=== PATIENT | female | born 1990 | race African-American/Black ===

== ENCOUNTER 2019-02-10 09:28 | Outpatient (CLI) | payer OTHER | END 2019-02-10 09:29 | disposition home or self-care (01) | LOC: EKG 09:28 | PROVIDERS: ATTEND Obstetrics & Gynecology | DX: R42 Dizziness and giddiness (principal) | CPT/HCPCS: 93005; 93010 ==

== ENCOUNTER 2019-02-23 11:12 | Emergency (ER) | payer OTHER ==
--- NOTE | 2019-02-23 11:59 | RAD ---
EXAM: Portable chest PROVIDED CLINICAL HISTORY: Cough COMPARISON: None FINDINGS: Cardiac and mediastinal silhouette is within normal limits. No focal consolidation, pleural fluid or pneumothorax evident. IMPRESSION: No evidence for an acute cardiopulmonary process.
[2019-02-23 12:18] LABS: ALT (SGPT) 24 U/L (8-55); AST (SGOT) 26 U/L (5-34); Albumin 3.9 g/dL (3.5-5.0); Alkaline Phosphatase 68 U/L (40-150); Anion Gap 15 mmol/L (10-20); BUN (Urea Nitrogen) 7 mg/dL (7.0-18.7); Bilirubin, Total 0.3 mg/dL (0.2-1.2); Calc. Creatinine Clearance 0 mL/min (70-130); Calcium 9.1 mg/dL (7.8-10.44); Carbon Dioxide 21 mmol/L (22-29); Chloride 104 mmol/L (98-107); Estimated GFR-MDRD Greater than 90; Globulin 3.5 g/dL (2.4-3.5); Glucose 75 mg/dL (70-105); Protein, Total 7.4 g/dL (6.0-8.3); Sodium 136 mmol/L (136-145)
[2019-02-23 12:20] LABS: #Basophils 0.1 thou/uL (0.0-0.2); #Eosinphils 0.1 thou/uL (0.0-0.7); #Lymphocytes 1.8 thou/uL (1.20-3.40); #Monocytes 0.8 thou/uL (0.11-0.59); #Neutrophils 7.3 thou/uL (1.40-6.50); %Basophils 0.5 % (0.0-1.0); %Eosinophils 1.1 % (0.0-10.0); %Lymphocytes 17.6 % (21.0-51.0); %Monocytes 7.8 % (0.0-10.0); Mean Corpuscular HGB CONC 32.9 g/dL (32.0-36.0); Mean Corpuscular Hemoglobin 29.4 pg (27.0-31.0); Mean Corpuscular Volume 89.5 fL (78.0-98.0); Mean Platelet Volume 8.2 fL (7.4-10.4); Platelet Count 285 thou/uL (130-400); RBC Distribution Width 13.5 % (11.5-14.5); Red Blood Cell (RBC) Count 4.41 mill/uL (4.20-5.40); White Blood Cell (WBC) Count 9.9 thou/uL (4.8-10.8)
[2019-02-23 12:55] LABS: Bilirubin Negative (Negative); Blood, Urine Small (Negative); Clarity CLOUDY (Clear); Glucose, Urine (Dipstick) Negative (Negative); Leukocyte Small (Negative); Nitrite Negative (Negative); Protein, Urine (Dipstick) 30 mg/dL (Neg-Trace); Specific Gravity, Urine 1.022 (1.002-1.036); Urobilinogen 0.2 mg/dL (0.2-1.0)
[2019-02-23 12:57] LABS: Bacteria/HPF Rare-Few HPF (None Seen); Pathc Cast-AUWi Flag 2.44 (0-2.49); Squamous Epithelial 21-50 HPF (0-3)
[2019-02-23 13:06] LABS: Hyaline Casts/LPF 0-3 HYALINE CAST LPF (0-3 Hyaline)
[2019-02-23] MEDS ORDERED: Fentanyl 100 MCG/2 ML VIAL ONE (13:49)
[2019-02-23] MEDS ORDERED: Acetaminophen 500 MG TAB ONE (13:49)
--- NOTE | 2019-02-26 09:05 | EKG ---
Test Reason : Blood Pressure : / mmHG Vent. Rate : 110 BPM Atrial Rate : 110 BPM P-R Int : 156 ms QRS Dur : 086 ms QT Int : 334 ms P-R-T Axes : 042 093 001 degrees QTc Int : 452 ms Sinus tachycardia Rightward axis Borderline ECG Confirmed by CLEM ANDERSON D.O. ([id number]), department editor CLARE NIX ([id number] on 02/26/2019 9:05:19 AM Referred By: Confirmed By:CLEM ANDERSON D.O.
== END 2019-02-23 14:30 | disposition home or self-care (01) ==
LOC: ERS 11:12
DX: O99.512 Diseases of the respiratory system complicating pregnancy, second trimester (principal); J06.9 Acute upper respiratory infection, unspecified; O23.42 Unspecified infection of urinary tract in pregnancy, second trimester; Z3A.22 22 weeks gestation of pregnancy
CPT/HCPCS: 36415; 71045; 80053; 81003; 81015; 83605; 85025; 87040; 87804; 93005; 94760; 96374; J3010

== ENCOUNTER 2019-06-19 19:15 | Inpatient (IN) | payer OTHER ==
--- NOTE | 2019-06-19 14:27 | PDOC.LDHP ---
Labor and Delivery H&P Chief complaint: scheduled induction HPI: 28 yo @ 38w2d who presents for IOL due to CHTN, not on meds. Current gestational age (weeks): 38 Due date: 07/01/19 Dating criteria: first trimester ultrasound Grav: 3 Para: 1 Current complications: hypertension Abnormal US findings: No Past Medical History: CHTN Current medications: pre-inessa vitamins, other (ASA 81 mg QD) Allergies/Adverse Reactions: Allergies Allergy/AdvReac Type Severity Reaction Status Date / Time acetaminophen [From Vicodin] Allergy Mild Emesis Verified 06/19/19 19:36 hydrocodone [From Vicodin] Allergy Mild Emesis Verified 06/19/19 19:36 Social history: none - Physical Exam Vital signs reviewed and normal: yes General: NAD Heart: RRR Lungs: nonlabored breathing Abdomen: gravid Extremeties: no edema FHT: category 1 (130s, mod sadiq, +accels, no decels) [place] contractions every: q2-5 min, not feeling them - Vaginal Exam cm dilated: 1 (cephalic, Cook balloon placed 80/80 cc) Effacement: 0% Station: -3 - OB Labs Blood type: O RH: positive Antibody Screen: negative HIV: negative RPR: negative HEPSAg: negative 1 hour GCT: negative GBS: negative Urine drug screen: negative Rubella: immune Additional Labs: SS wnl - Assessment 28 yo @ 38w2d IOL due to CHTN - Plan Plan: admit to L&D, cervical ripening (s/p cytotec and balloon placed), informed consent obtained, anesthesia consult for pain management
[2019-06-19] MEDS ORDERED: Misoprostol 200 MCG TAB PR PRN (19:32)
[2019-06-19] MEDS ORDERED: NS / Oxytocin 40 units/1000ml 1,000 ML IV PRN (19:32)
[2019-06-19] MEDS ORDERED: Carboprost 250 MCG/ML AMP IM PRN (19:32)
[2019-06-19] MEDS ORDERED: Ondansetron PF 4 MG/2 ML Vial IVP PRN (19:32)
[2019-06-19] MEDS ORDERED: hydrALAZINE 20 MG/ML VIAL SLOW IVP PRN (19:32)
[2019-06-19] MEDS ORDERED: Diphenoxylate HCl/Atropine Tablet PO PRN (19:32)
[2019-06-19] MEDS ORDERED: Butorphanol Tartrate 1 MG/ML VIAL SLOW IVP PRN (19:32)
[2019-06-19] MEDS ORDERED: Promethazine HCl 25 MG/ML VIAL IM PRN (19:32)
[2019-06-19] MEDS ORDERED: HYDROcodone/Acetaminophen 5/325 mg Tablet PO PRN (19:32)
[2019-06-19] MEDS ORDERED: Ibuprofen 800 MG TAB PO PRN (19:32)
[2019-06-19] MEDS ORDERED: Lidocaine 1% (PF) 30 ML VIAL SC PRN (19:32)
[2019-06-19] MEDS ORDERED: Acetaminophen 500 MG TAB PO PRN (19:32)
[2019-06-19 19:44] VITALS: BMI 41.5
[2019-06-19] MEDS: Lactated Ringer's 1,000 ML IV SCH (20:00)
[2019-06-19] MEDS ORDERED: Misoprostol 100 MCG TAB ONE (20:07)
[2019-06-19 20:10] LABS: Hemoglobin 11.9 g/dL (12.0-16.0); Mean Corpuscular HGB CONC 34.1 g/dL (32.0-36.0); Mean Corpuscular Hemoglobin 30.9 pg (27.0-31.0); Mean Corpuscular Volume 90.8 fL (78.0-98.0); Mean Platelet Volume 8.5 fL (7.4-10.4); Platelet Count 234 thou/uL (130-400); RBC Distribution Width 13.7 % (11.5-14.5); Red Blood Cell (RBC) Count 3.85 mill/uL (4.20-5.40); White Blood Cell (WBC) Count 7.3 thou/uL (4.8-10.8)
[2019-06-19] MEDS: Misoprostol 100 MCG TAB VAG SCH ×2 (20:19→23:30)
[2019-06-19 20:37] LABS: ALT (SGPT) 9 U/L (8-55); AST (SGOT) 15 U/L (5-34); Albumin 3.6 g/dL (3.5-5.0); Alkaline Phosphatase 133 U/L (40-150); Anion Gap 12 mmol/L (10-20); BUN (Urea Nitrogen) 6 mg/dL (7.0-18.7); Bilirubin, Total 0.3 mg/dL (0.2-1.2); Calc. Creatinine Clearance 219 mL/min (70-130); Calcium 9.4 mg/dL (7.8-10.44); Carbon Dioxide 22 mmol/L (22-29); Chloride 107 mmol/L (98-107); Estimated GFR-MDRD Greater than 90; Globulin 3.1 g/dL (2.4-3.5); Glucose 85 mg/dL (70-105); Potassium 3.8 mmol/L (3.5-5.1); Protein, Total 6.7 g/dL (6.0-8.3); Sodium 137 mmol/L (136-145)
[2019-06-19 20:53] LABS: Syphilis Antibody Nonreactive (Nonreactive); Syphilis Antibody Index 0.07 S/CO (<1.00 Non-Reactive)
[2019-06-19 20:59] LABS: Bilirubin Negative (Negative); Blood, Urine Negative (Negative); Clarity Clear (Clear); Glucose, Urine (Dipstick) Normal (Negative); Leukocyte Negative Leu/uL (Negative); Nitrite Negative (Negative); Protein, Urine (Dipstick) 10 mg/dL (Neg-Trace); Urobilinogen Normal mg/dL (Less than 2); WBC/HPF 0-3 HPF (0-3)
[2019-06-19 21:07] LABS: Bacteria/HPF Rare-Few HPF (None Seen); Yeast-Budding None Seen HPF (None Seen)
[2019-06-20 00:24] LABS: HBSAg Index 0.26 S/CO (0-0.99); HIV (1/2) Antibody/Antigen Non-Reactive (NonReactive); HIV 1/2 INDEX 0.07 S/CO (<1.00); Hep B Surf Ag Non-Reactive S/CO (NonReactive)
[2019-06-20] MEDS: Misoprostol 100 MCG TAB VAG SCH ×2 (02:46→22:13)
[2019-06-20] MEDS: Lactated Ringer's 1,000 ML IV SCH ×2 (03:12→22:11)
--- NOTE | 2019-06-20 12:37 | PDOC.LDPN ---
Labor & Delivery Progress Note - Subjective Subjective: painful contractions - Objective Vital signs reviewed and normal: yes General: NAD Uterine fundus: non tender Dilation: 5 Effacement: 50% Station: -2 FHT: category 1 (140s, mod sadiq, +accels, no decels ) [place] contractions every: q2-4 min Procedures: Cook balloon removed. AROM: clear fluid Plan: continue plan of care, pitocin for augmentation
--- NOTE | 2019-06-20 16:45 | PDOC.LDPN ---
Labor & Delivery Progress Note - Subjective Subjective: painful contractions - Objective Vital signs reviewed and normal: yes General: NAD Uterine fundus: non tender Dilation: 6 Effacement: 75% Station: -1 FHT: category 2 (140s, mod sadiq, +accels, variable decels with ctx ) IUPC placed: yes Resuscitative measures: amniofusion, maternal position change - Assessment (1) 38 weeks gestation of Code(s): Z3A.38 - 38 WEEKS GESTATION OF Current Visit: Yes Status : Acute (2) Chronic hypertension Code(s): I10 - ESSENTIAL (PRIMARY) HYPERTENSION Current Visit: Yes Status: Acute Plan: continue plan of care, pitocin for augmentation, resuscitative measures ( start amnioinfusion )
[2019-06-20] MEDS ORDERED: Lidocaine 1.5%/Epinephrine 1:200,000 5 ML AMPUL IJ ONE (17:23)
[2019-06-20] MEDS ORDERED: Fentanyl 4 mcg/Bup 0.1% Cadd 100 ML ONE (17:23)
[2019-06-20] MEDS ORDERED: Ibuprofen 800 MG TAB PO PRN (19:41)
[2019-06-20] MEDS ORDERED: Milk Of Magnesia 30 ML UDCUP PO PRN (19:54)
[2019-06-20] MEDS ORDERED: Bisacodyl 10 MG SUPP PR PRN (19:54)
[2019-06-20] MEDS ORDERED: hydrALAZINE 20 MG/ML VIAL SLOW IVP PRN (19:54)
[2019-06-20] MEDS ORDERED: diphenhydrAMINE 25 MG CAP PO PRN (19:54)
[2019-06-20] MEDS ORDERED: HYDROcodone/Acetaminophen 5/325 mg Tablet PO PRN (19:54)
[2019-06-20] MEDS ORDERED: NS / Oxytocin 40 units/1000ml 1,000 ML IV SCH (19:54)
[2019-06-20] MEDS ORDERED: Benzocaine-Menthol 82.5 ML CAN TOP PRN (19:54)
[2019-06-20] MEDS: NS w/ Oxytocin 10 units 500 ML IV SCH (22:12)
[2019-06-21] MEDS: Docusate Calcium (SURFAK) 240 MG CAP PO SCH ×3 (01:07→21:29)
--- NOTE | 2019-06-21 01:25 | OP ---
DATE OF PROCEDURE: 06/20/2019 The patient delivered a male infant on 06/20/2019 at 1800 hours by term spontaneous vaginal delivery at 38 weeks gestation. Apgars were 8 and 9. Placenta delivered spontaneously followed by Pitocin infusion. There were no lacerations. Estimated blood loss was [address] Uziel Mooney is a delivering physician. Counts are correct. Mother and baby are stable in the room in the immediate . Job ID: [id number]
[2019-06-21] MEDS: NS w/ Oxytocin 10 units 500 ML IV SCH (06:12)
[2019-06-21] MEDS: Ibuprofen 800 MG TAB PO SCH ×3 (06:16→21:29)
[2019-06-21 06:18] LABS: #Eosinphils 0.1 thou/uL (0.0-0.7); #Monocytes 1.4 thou/uL (0.11-0.59); #Neutrophils 10.4 thou/uL (1.40-6.50); %Basophils 0.2 % (0.0-1.0); %Eosinophils 0.7 % (0.0-10.0); %Lymphocytes 14.4 % (21.0-51.0); %Monocytes 9.8 % (0.0-10.0); Mean Corpuscular HGB CONC 34.1 g/dL (32.0-36.0); Mean Corpuscular Hemoglobin 31.5 pg (27.0-31.0); Mean Corpuscular Volume 92.1 fL (78.0-98.0); Mean Platelet Volume 8.6 fL (7.4-10.4); Platelet Count 206 thou/uL (130-400); RBC Distribution Width 13.8 % (11.5-14.5); Red Blood Cell (RBC) Count 3.81 mill/uL (4.20-5.40); White Blood Cell (WBC) Count 13.8 thou/uL (4.8-10.8)
[2019-06-21] MEDS: Ferrous Sulfate 325 MG TAB PO SCH ×2 (08:55→21:08)
--- NOTE | 2019-06-21 10:07 | PDOC.PP ---
Post Progress Note Post Day #: 1 Subjective: Pt doing well PPD1. Minimal locia. She denies any pain at this time. She is urinating without difficulty. She is breast feeding and baby has been latching well. She is eating and drinking normally. She has no leg pain or swelling. PO intake tolerated: yes Flatus: yes Ambulation: yes Vital Signs (12 hours) Temp Pulse Resp BP Pulse Ox 06/21/19 07:49 98.6 F 95 20 116/56 L 98 06/21/19 06:34 98.6 F 94 16 124/60 06/21/19 00:05 98.3 F 101 H 12 129/58 L 06/20/19 22:30 99.5 F 117 H 16 125/57 L Weight Weight 242 lb - Physical Examination General: NAD Respiratory: non-labored breathing Abdominal: + bowel sounds Fundus firm & at: 1 cm below umbilicus Extremities: negative homans (B) Skin: no rash Neurological: no gross focal deficits Psychiatric: A&Ox3, normal affect Result Diagrams: 06/21/19 05:51 06/19/19 20:01 Additional Labs: Post Labs Blood Type O POSITIVE 06/19/19 20:25 Hep Bs Antigen Non-Reactive S/CO (NonReactive) 06/19/19 20:01 Rh +, GBS - (1) Vaginal delivery Code(s): O80 - ENCOUNTER FOR FULL-TERM UNCOMPLICATED DELIVERY Status: Acute (2) Chronic hypertension Code(s): I10 - ESSENTIAL (PRIMARY) HYPERTENSION Status: Acute - Assessment/Plan Pt is doing well PPD1. She is has minimal lochia and denies pain. She is breast feeding and baby is latching well. She remains normotensive this am. Baby boy is getting circumcised later today and will be discharged tomorrow. We will plan to d/c mom tomorrow on PPD2 with baby.
[2019-06-22] MEDS: Ibuprofen 800 MG TAB PO SCH (05:45)
[2019-06-22] MEDS: NS w/ Oxytocin 10 units 500 ML IV SCH (06:06)
[2019-06-22 07:54] VITALS: BP 114/59; TEMP 98.1
[2019-06-22] MEDS: Docusate Calcium (SURFAK) 240 MG CAP PO SCH (09:14)
[2019-06-22] MEDS: Ferrous Sulfate 325 MG TAB PO SCH (09:16)
--- NOTE | 2019-06-22 13:23 | PDOC.PP ---
Post Progress Note Post Day #: 2 Subjective: Late entry PP note: Doing well, no concerns. Minimal pain and lochia. Breast feeding. PO intake tolerated: yes Flatus: yes Ambulation: yes Vital Signs (12 hours) Temp Pulse Resp BP Pulse Ox 06/22/19 07:53 98.1 F 78 20 114/59 L 98 Weight Weight 242 lb - Physical Examination General: NAD Cardiovascular: RRR Respiratory: non-labored breathing Abdominal: no distention, appropriately TTP Fundus firm & at: below umbilicus Extremities: negative homans (B) Neurological: no gross focal deficits Psychiatric: A&Ox3, normal affect Result Diagrams: 06/21/19 05:51 06/19/19 20:01 Additional Labs: Post Labs Blood Type O POSITIVE 06/19/19 20:25 Hep Bs Antigen Non-Reactive S/CO (NonReactive) 06/19/19 20:01 (1) 38 weeks gestation of Code(s): Z3A.38 - 38 WEEKS GESTATION OF Status: Resolved (2) Chronic hypertension Code(s): I10 - ESSENTIAL (PRIMARY) HYPERTENSION Status: Resolved (3) Vaginal delivery Code(s): O80 - ENCOUNTER FOR FULL-TERM UNCOMPLICATED DELIVERY Status: Acute - Assessment/Plan PPD2 VSSAF BPs wnl D/C home today with infant
== END 2019-06-22 12:45 | disposition home or self-care (01) | DRG 807 ==
LOC: L&D 19:19 → 3SW 06-20 21:31
PROVIDERS: ADMIT Obstetrics & Gynecology; ATTEND Obstetrics & Gynecology
PROC: 10E0XZZ Delivery of Products of Conception, External Approach (ICD-10-PCS; principal; 2019-06-20)
DX: O10.92 Unspecified pre-existing hypertension complicating childbirth (principal); Z37.0 Single live birth; Z3A.38 38 weeks gestation of pregnancy
CPT/HCPCS: 36415; 80053; 81001; 85025; 85027; 86780; 86850; 86900; 86901; 87340; 87389; J0595; J2001; J2590; J3490

== ENCOUNTER 2022-05-11 11:17 | Emergency (ER) | payer OTHER ==
[2022-05-11] MEDS ORDERED: Ibuprofen 800 MG TAB ONE (13:15)
== END 2022-05-11 14:01 | disposition home or self-care (01) ==
LOC: ERS 11:17
DX: J02.9 Acute pharyngitis, unspecified (principal); J06.9 Acute upper respiratory infection, unspecified
CPT/HCPCS: 87081; 87430; 99283